=== PATIENT | male | born 1970 | race Two or more races ===

== ENCOUNTER 2024-04-06 14:36 | Emergency (ER) | payer OTHER ==
[~2024-04-06] VITALS: Ht 165.1 cm; Wt 63.6 kg
[2024-04-06 15:45] LABS: BASOPHILS % (AUTO) 0.3 % (0.0-2.0); EOSINOPHILS % (AUTO) 1.6 % (1.0-6.0); HEMOGLOBIN 10.5 g/dL (13.5-17.5); LYMPHOCYTES # (AUTO) 1.4 K/uL (1.0-4.8); LYMPHOCYTES % (AUTO) 21.9 % (22.0-44.0); MEAN CORPUSCULAR HEMOGLOBIN 29.6 pg (26.0-34.0); MEAN CORPUSCULAR HGB CONC 33.9 G/dL (31.0-37.0); MEAN CORPUSCULAR VOLUME 87 fL (80-100); MONOCYTES # (AUTO) 0.6 K/uL (0.1-1.0); MONOCYTES % (AUTO) 9.5 % (2.0-9.0); NEUTROPHILS # (AUTO) 4.3 K/uL (1.8-7.7); NEUTROPHILS % (AUTO) 66.7 % (40.0-70.0); PLATELET COUNT (AUTO) 169 K/uL (150-450); RED BLOOD CELL COUNT(AUTO) 3.55 MIL/uL (4.50-5.90); WHITE BLOOD COUNT (AUTO) 6.5 K/uL (4.5-11.0)
[2024-04-06 15:54] LABS: ANION GAP 4 mmol/L (8-16); CARBON DIOXIDE 32 mmol/L (22-29); CHLORIDE 102 mmol/L (98-107); CREATININE 1.77 mg/dL (0.60-1.30); GLOMERULAR FILTR. RATE CALC 40 mL/min (>60); GLUCOSE,RANDOM 167 mg/dL (70-110); POTASSIUM 5.3 mmol/L (3.5-5.1); SODIUM SERUM 138 mmol/L (136-145); UREA NITROGEN, BLOOD 14 mg/dL (7-18)
[2024-04-06 16:00] LABS: ALCOHOL, BLOOD (SERUM) < 3 mg/dL (0-10)
[2024-04-06 16:12] LABS: TROPONIN I-HIGH SENSITIVITY 6 ng/L (<76)
[2024-04-06] MEDS: SODIUM CHLORIDE 0.9% 1,000 ML IV ONE (16:34)
[2024-04-06 16:46] VITALS: TEMP 97.9
[2024-04-06 17:12] LABS: PH,URINE DRUG SCREEN 7.5 (5.0-8.0)
[2024-04-06 17:30] LABS: ALCOHOL, URINE DRUG SCREEN NEGATIVE (NEGATIVE); AMPHET/METH SCREEN,URINE NEGATIVE (NEGATIVE); BARBITURATE SCREEN, URINE NEGATIVE (NEGATIVE); BENZODIAZEPINES SCREEN,URINE NEGATIVE (NEGATIVE); CANNABINOID SCREEN,URINE NEGATIVE (NEGATIVE); COCAINE SCREEN,URINE NEGATIVE (NEGATIVE); METHADONE SCREEN, URINE NEGATIVE (NEGATIVE); OPIATE SCREEN,URINE NEGATIVE (NEGATIVE); PHENCYCLIDINE SCREEN,URINE NEGATIVE (NEGATIVE)
[2024-04-06 18:18] VITALS: BP 140/81; PULSE 82; RESP 18
[2024-04-06] MEDS ORDERED: SODI5POW3 PO ×2 (18:30)
[2024-04-08] MEDS ORDERED: INSU3INS3 SQ (15:51)
[2024-04-08] MEDS ORDERED: METF-446 PO (15:51)
[2024-04-08] MEDS ORDERED: ATOR40TA71 PO (15:51)
[2024-04-09] MEDS ORDERED: GLIP5TAB15 PO (17:54)
== END 2024-04-06 19:05 | disposition home or self-care (01) ==
LOC: EMS 14:36
DX: R55 Syncope and collapse (principal); E11.22 Type 2 diabetes mellitus with diabetic chronic kidney disease; N18.9 Chronic kidney disease, unspecified; Z79.899 Other long term (current) drug therapy
CPT/HCPCS: 99284; 96360; 80048; 84484; 85025; 36415; 93005; 80307; G0480; J7030

== ENCOUNTER 2024-04-16 18:15 | Emergency (ER) | payer OTHER ==
[~2024-04-16] VITALS: Ht 170.2 cm; Wt 65.9 kg
[~2024-04-16 18:15] MED LIST: ATOR40TA71 PO; GLIP5TAB15 PO; INSU3INS3 SQ; METF-446 PO; SODI5POW3 PO
[2024-04-16] MEDS: SODIUM CHLORIDE 0.9% 1,000 ML IV ONE (22:30)
[2024-04-16 22:52] LABS: BASOPHILS % (AUTO) 0.3 % (0.0-2.0); HEMATOCRIT 28.6 % (41-53); HEMOGLOBIN 9.4 g/dL (13.5-17.5); LYMPHOCYTES # (AUTO) 1.4 K/uL (1.0-4.8); LYMPHOCYTES % (AUTO) 24.8 % (22.0-44.0); MEAN CORPUSCULAR HEMOGLOBIN 29.3 pg (26.0-34.0); MEAN CORPUSCULAR VOLUME 89 fL (80-100); MONOCYTES # (AUTO) 0.7 K/uL (0.1-1.0); MONOCYTES % (AUTO) 12.7 % (2.0-9.0); NEUTROPHILS # (AUTO) 3.4 K/uL (1.8-7.7); NEUTROPHILS % (AUTO) 60.2 % (40.0-70.0); PLATELET COUNT (AUTO) 166 K/uL (150-450); RED BLOOD CELL COUNT(AUTO) 3.23 MIL/uL (4.50-5.90); RED CELL DISTRIBUTION WIDTH 15.4 % (11.5-14.5); WHITE BLOOD COUNT (AUTO) 5.7 K/uL (4.5-11.0)
[2024-04-16 22:56] LABS: CREATININE 2.28 mg/dL (0.60-1.30); POTASSIUM 5.1 mmol/L (3.5-5.1)
[2024-04-16 23:06] LABS: TROPONIN I-HIGH SENSITIVITY 5 ng/L (<76)
[2024-04-17 00:38] VITALS: BP 117/63; PULSE 71; RESP 18; TEMP 97.3
[2024-04-17] MEDS ORDERED: ACETAMINOPHEN 500 MG TABLET ONE (01:00)
[2024-04-17] MEDS: ACETAMINOPHEN 160 MG/5 ML SUSPENSION UDCUP PO ONE (01:01)
[2024-04-17] MEDS: METHYL SALICYLATE/MENTH/CAMPH TOPICAL PATCH TP ONE (01:02)
[2024-04-17] MEDS: LIDOCAINE 5% TRANSDERMAL PATCH TD ONE (01:06)
== END 2024-04-17 03:01 | disposition home or self-care (01) ==
LOC: EMS 18:19
DX: R55 Syncope and collapse (principal); E11.22 Type 2 diabetes mellitus with diabetic chronic kidney disease; I12.9 Hypertensive chronic kidney disease with stage 1 through stage 4 chronic kidney disease, or unspecified chronic kidney disease; N18.9 Chronic kidney disease, unspecified
CPT/HCPCS: 99285; 96360; 80048; 84484; 85025; 36415; 82962; 93005; Q9967